=== PATIENT | female | born 1955 | race Caucasian/White ===

== ENCOUNTER 2018-05-24 19:41 | Emergency (ER) | payer OTHER ==
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
[2018-05-25] MEDS ORDERED: HYDROCODONE/ACETAMINOPHEN 5-325 MG (6 TAB/ER DISP) PO PRN (00:28)
[2018-05-25 00:38] VITALS: BP 139/78
== END 2018-05-25 00:38 | disposition home or self-care (01) ==
LOC: ER 19:41
DX: R07.81 Pleurodynia (principal); I10 Essential (primary) hypertension
CPT/HCPCS: 99283